=== PATIENT | female | born 1955 | race Caucasian/White ===

== ENCOUNTER → 2020-07-02 | Outpatient (CLI) | payer OTHER ==
[~2020-07-02] MED LIST: AFRIN15 M1; ASPIRIN EC81 MG PO; BACLOFEN10 MG PO; CAPOZIDE 25/15 T1 EA GT; CYMBALTA60 MG PO; GLUCOPHAGE 500500 MG PO; HYDROCHLOROTHIA25 MG PO; LEVAQUIN500 MG PO; LIORESAL TAB 1010 MG PO; LIPITOR TAB 1010 MG PO; METAMUCIL SMOOTH1 EA PO; METOPROLOL TART25 MG PO; MOTRIN IB200 MG PO; NEURONTIN800 MG PO; NORVASC5 MG PO; PLAVIX 75 MG TA75 MG PO; PRINIVIL20 MG PO; PROTONIX40 MG PO; RANEXA500 MG PO; TYLENOL 500 MG500 MG PO
[2020-07-02 11:19] LABS: HEMOGLOBIN 11.7 gm/dl (12.3-15.3); RED BLOOD COUNT 4.64 M/UL (4.00-5.10); WHITE BLOOD COUNT 6.9 K/UL (4.5-11.0)
== END ==
LOC: LAB 10:44
PROVIDERS: Emergency Medicine
DX: I10 Essential (primary) hypertension (principal); E78.2 Mixed hyperlipidemia; E55.9 Vitamin D deficiency, unspecified; E53.9 Vitamin B deficiency, unspecified; E11.9 Type 2 diabetes mellitus without complications
CPT/HCPCS: 36415; 80048; 85025

== ENCOUNTER → 2020-10-28 | Outpatient (CLI) | payer OTHER | LOC: EXRD 10-17 10:30 | DX: M81.0 Age-related osteoporosis without current pathological fracture (principal); I73.89 Other specified peripheral vascular diseases | CPT/HCPCS: 77080; 93925 ==

== ENCOUNTER → 2021-09-23 | Outpatient (CLI) | payer OTHER | LOC: KOH-I 10:30 | DX: M79.661 Pain in right lower leg (principal); I80.01 Phlebitis and thrombophlebitis of superficial vessels of right lower extremity | CPT/HCPCS: 93971 ==